=== PATIENT | male | born 1975 | race Caucasian/White ===

== ENCOUNTER → 2023-03-28 13:20 | Outpatient (REF) | payer OTHER, SELFPAY | LOC: HWRAD 13:20 | PROVIDERS: ATTENDING PHYSICIAN Internal Medicine Rheumatology; FAMILY PHYSICIAN Family Medicine | DX: M65.4 Radial styloid tenosynovitis [de Quervain] (principal) | CPT/HCPCS: 73100 ==

== ENCOUNTER 2024-11-30 19:51 | Emergency (ER) | payer SELFPAY ==
[2024-11-30 19:51] VITALS: BMI 25.8
[2024-11-30 19:57] VITALS: BP 180/118
--- NOTE | 2024-11-30 22:55 | ED.GENMED ---
History of Present Illness
General
Chief Complaint: Skin Surface Trauma
Source: patient
Time Seen by Provider: 11/30/24 22:40
History of Present Illness
History of Present Illness:
49-year-old male presenting to the emergency department for evaluation after he accidentally tripped over the family dog, was holding a glass at the time which fell and broke on the ground, sustained a laceration from the glass on the palmar surface
of the right hand going towards the wrist. No other injuries were sustained. Patient's tetanus vaccine is up-to-date. Patient is right-hand dominant.
Past History
Past History
ED Past Medical History: None
ED Past Surgical History: Orthopedic and Other
Social History
Tobacco: Non-smoker
Alcohol: Occasional
Drug: None
Personal:
Living: alone
Review of Systems
Review of Systems
All Other Systems: ROS reviewed and negative except as documented in HPI and ROS
Phy Exam
Physical Exam
Physical Exam:
GENERAL: Alert , in no apparent distress
EYE: conjunctiva clear
Head: Normocephalic atraumatic
NECK: Supple,
ENT: mmm.
LUNGS: no acute respiratory distress
NEUROLOGICAL: Alert and oriented
SKIN: Warm and dry, approximately 1-1/2 cm superficial laceration, linear to the palmar surface of the right hand along the thenar eminence extending towards the wrist. No active bleeding.
MUSCULOSKELETAL: well perfused. Full range of motion of all digits, sensation intact and equal throughout all digits
PSYCH: Normal and appropriate interaction.
Scores
Heart Failure Risk
Heart Failure Risk Score: Not Applicable
Heart Score for Chest Pain Patients
STEMI patient?: Not applicable
Withdrawal Assessment of Alcohol
Withdrawal Assessment Completed?: Not applicable
Course
Orders/Labs/Results
Orders:
Orders
11/30/24 20:41
Hand, Right 3 View [CR Hand - Right Min 3 Views] Urgent
Comment:
Reason For Exam: Laceration w/ glass
Vital Signs
Initial and Last Documented VS:
Initial Vital Signs
Temp Pulse Resp BP Pulse Ox
98.8 F 87 18 180/118 97
11/30/24 19:57 11/30/24 19:57 11/30/24 19:57 11/30/24 19:57 11/30/24 19:57
Last Documented Vital Signs
Temp Pulse Resp BP Pulse Ox
98.8 F 85 18 180/118 99
11/30/24 19:57 11/30/24 22:00 11/30/24 22:00 11/30/24 19:57 11/30/24 22:56
Procedures
Laceration Closure
Right Hand:
Status of Wound: clean
Size of Wound in cm: 1.5
Description of Wound Edges: sharp
Preparation: cleaned with saline
Anesthesia: 1% Lidocaine
Type of Closure: single layer closure
Skin Closure Material: 5-0 nylon
Number of sutures: 6
MDM/Problems Addressed
Differential Diagnosis Includes:
Simple lac
Foreign body
Fracture
MDM/Problems Addressed:
49-year-old male presenting the ER for evaluation after sustaining laceration from an accidental fall and glass breaking on the ground. Laceration repaired as above without difficulty. X-ray shows no acute fracture and no foreign body. Patient
advised on wound care, suture removal in 10 days. Aware of return precautions, otherwise stable for discharge home.
*Radiology
Radiology exam reviewed: preliminary read by ED provider (No fracture, no foreign body)
*Pulse Oximetry
SaO2: 99
Oxygen Mode of Delivery: Room air
Patient hypoxic: no
*Critical Care Note
Total Time (30-74mins, 75-104mins- exclusive of procedures): Not Applicable
ED Attending Note
-
Portions of this chart may have been created with voice recognition software.� Occasional wrong word or��sound alike� substitutions may have occurred due to the inherent limitations of voice recognition software.
Discharge Plan
Departure
Patient Disposition: Home (Routine Discharge)
Date of Disposition: 11/30/24
Time of Disposition: 22:55
Patient with high blood pressure during this ER visit?: Yes
Discharge Problem:
Laceration of hand, right
Instructions: Laceration Repair With Stitches (DC)
Prescriptions:
No Action
lidocaine 4 % adhesive patch,medicated
1 patch topical DAILY PRN (Reason: pain) Qty: 10 0RF
Rx Instructions:
remove after 12 hrs.
Referrals:
Donal Burger DO [Family Provider, Family Practice]
Activity Restrictions/Additional Instructions:
Suture removal in 10 days
Interventions
Interventions:
*Risk Screen - Suicide Last Done: 11/30/24 22:00
*General Assessment Last Done: 11/30/24 22:00
*Neglect/Abuse Screening Last Done: 11/30/24 22:00
*ED- Fall Risk Assessment Last Done: 11/30/24 22:00
*ED COVID-19 Vaccine History Last Done: 11/30/24 22:00
*ED Influenza Vaccine History Last Done: 11/30/24 22:00
*Nursing Disposition Last Done: 11/30/24 22:00
ED-Skin Assessment Last Done: 11/30/24 20:40
Discharge Date and Time
Discharge Date/Time: 12/01/24 00:28
Print Language: JORDANIAN
== END 2024-12-01 00:28 | disposition home or self-care (01) ==
LOC: EMR 19:51
PROVIDERS: EMERGENCY PHYSICIAN Emergency Medicine; FAMILY PHYSICIAN Family Medicine
DX: S61.411A Laceration without foreign body of right hand, initial encounter (principal); W18.09XA Striking against other object with subsequent fall, initial encounter; W25.XXXA Contact with sharp glass, initial encounter; R03.0 Elevated blood-pressure reading, without diagnosis of hypertension
CPT/HCPCS: 99283; 12001; 73130